=== PATIENT | female | born 1940 | race Caucasian/White ===

== ENCOUNTER → 2019-08-22 | Outpatient (CLI) | payer OTHER ==
[~2019-08-22] MED LIST: ATOR10 PO; ATOR20 PO; Chondroitin Su250 MG PO; FERR325; GLUC500 PO; LANS15EC PO; LEVSOD50 PO; LISI5 PO; METF850 PO; Motrin600 MG PO; NAPR220; Norco 5-325 Ta1 EACH PO; UBID100 PO
[2019-08-23 14:32] LABS: Stool Occult Bld Immuno 1 Negative (NEGATIVE)
== END | disposition home or self-care (01) ==
LOC: OLS 17:40 → LAB SHORT 17:40 → LAB FUT 08-19 08:40
PROVIDERS: Physician Assistant
DX: D64.9 Anemia, unspecified (principal)
CPT/HCPCS: 82274

== ENCOUNTER → 2019-10-01 | Outpatient (CLI) | payer OTHER ==
[2019-10-01 17:29] LABS: Creatinine, Urine Random 81.2 mg/dL (27.00-270.00); Protein, Urine Random 16.1 mg/dL (0.0-11.9)
== END | disposition home or self-care (01) ==
LOC: LAB 15:30 → LAB SHORT 15:30
PROVIDERS: Internal Medicine
DX: N18.3 Chronic kidney disease, stage 3 (moderate) (principal)
CPT/HCPCS: 82570; 84156

== ENCOUNTER 2020-10-13 15:04 | Inpatient (IN) | payer OTHER, MEDICARE ==
[~2020-10-13] VITALS: Ht 165.1 cm; Wt 74.8 kg
[~2020-10-13 15:04] MED LIST changes: -ATOR20 PO; +ATOR80 PO; +Glucophage 850850 MG PO; +LEVOTHYROXINE25 MC1 PO; -LEVSOD50 PO; -METF850 PO
[2020-10-13 15:42] LABS: BASOPHILS ABSOLUTE AUTO 0.05 K/mm3 (0.00-0.23); BASOPHILS PERCENT AUTO 1 % (0-2); EOSINOPHILS ABSOLUTE AUTO 0.34 K/mm3 (0.00-0.68); EOSINOPHILS PERCENT AUTO 4 % (0-6); Hematocrit 34.3 % (33.0-51.0); Hemoglobin 11.3 g/dL (11.5-16.0); IMMATURE GRAN ABSOLUTE AUTO 0.02 K/mm3 (0.00-0.10); IMMATURE GRAN PERCENT AUTO 0 % (0-1); LYMPHOCYTES ABSOLUTE AUTO 1.79 K/mm3 (0.84-5.20); LYMPHOCYTES PERCENT AUTO 23 % (21-46); MONOCYTES ABSOLUTE AUTO 0.49 K/mm3 (0.16-1.47); MONOCYTES PERCENT AUTO 6 % (4-13); Mean Corpuscular HGB 31.1 pg (26.0-34.0); Mean Corpuscular HGB Conc 32.9 g/dL (31.5-36.5); Mean Corpuscular Volume 95 fL (80-100); NEUTROPHILS ABSOLUTE AUTO 4.97 K/mm3 (1.96-9.15); NEUTROPHILS PERCENT AUTO 65 % (41-73); Platelet Count 301 K/mm3 (150-400); RDW Coefficient Variation 12.5 % (11.7-14.2); Red Blood Cell Count 3.63 M/mm3 (3.80-5.20); White Blood Cell Count 7.66 K/mm3 (4.00-11.30)
[2020-10-13 15:55] LABS: Albumin, Blood 4.3 g/dL (3.4-5.0); Albumin/Globulin Ratio 1.3 (0.8-1.8); Bilirubin, Total 0.2 mg/dL (0.1-1.0); Bun/Creatinine Ratio 18.8 (12.0-20.0); Calcium, Blood 9.2 mg/dL (8.5-10.1); Creatinine, Blood 1.33 mg/dL (0.40-1.00); Globulin, Blood 3.2 g/dL (2.2-4.0); Potassium, Blood 4.3 mmol/L (3.5-5.5); Total Protein, Blood 7.5 g/dL (6.4-8.2)
[2020-10-13] MEDS ORDERED: MULTI-VITAMIN1 EAC2 PO (16:47)
[2020-10-13] MEDS ORDERED: ESOM20 PO ×2 (16:47→19:11)
[2020-10-13] MEDS ORDERED: CALCIUM 600 +1 EAC7 PO (16:48)
[2020-10-13 22:49] LABS: Source, Urine Clean Catch
[2020-10-13 22:52] LABS: Bilirubin, Urine Neg (Neg); Blood, Urine 1+ (Neg); Glucose Qualitative, Urine Neg (Neg); Ketones, Urine 1+ (Neg); Leukocyte Esterase, Urine Neg (Neg); Nitrite, Urine Neg (Neg); Protein, Urine 3+ (Neg); Specific Gravity, Urine 1.005 (1.003-1.022); Urobilinogen, Urine NORM (Normal)
[2020-10-13 22:59] LABS: Appearance, Urine Clear (Clear); Color, Urine Yellow (P-Yellow)
[2020-10-13 23:00] LABS: Bacteria Not Seen /hpf; Red Blood Cells, Urine Rare /hpf (0-2); Squamous Epithelial Cells Rare /hpf (Few); White Blood Cells, Urine Not Seen /hpf (0-5)
[2020-10-14 04:07] LABS: BASOPHILS ABSOLUTE AUTO 0.02 K/mm3 (0.00-0.23); BASOPHILS PERCENT AUTO 0 % (0-2); EOSINOPHILS PERCENT AUTO 0 % (0-6); Hematocrit 31.3 % (33.0-51.0); Hemoglobin 10.6 g/dL (11.5-16.0); IMMATURE GRAN ABSOLUTE AUTO 0.05 K/mm3 (0.00-0.10); IMMATURE GRAN PERCENT AUTO 0 % (0-1); LYMPHOCYTES ABSOLUTE AUTO 0.74 K/mm3 (0.84-5.20); LYMPHOCYTES PERCENT AUTO 7 % (21-46); MONOCYTES ABSOLUTE AUTO 0.26 K/mm3 (0.16-1.47); MONOCYTES PERCENT AUTO 2 % (4-13); Mean Corpuscular HGB 30.7 pg (26.0-34.0); Mean Corpuscular HGB Conc 33.9 g/dL (31.5-36.5); Mean Corpuscular Volume 91 fL (80-100); Mean Platelet Volume 10.3 fL (9.1-12.4); NEUTROPHILS ABSOLUTE AUTO 10.25 K/mm3 (1.96-9.15); NEUTROPHILS PERCENT AUTO 91 % (41-73); Platelet Count 316 K/mm3 (150-400); RDW Coefficient Variation 12.3 % (11.7-14.2); RDW Standard Deviation 40.9 fL (35.1-46.3); Red Blood Cell Count 3.45 M/mm3 (3.80-5.20); White Blood Cell Count 11.32 K/mm3 (4.00-11.30)
[2020-10-14 04:28] LABS: Albumin, Blood 4.1 g/dL (3.4-5.0); Albumin/Globulin Ratio 1.5 (0.8-1.8); Bilirubin, Total 0.5 mg/dL (0.1-1.0); Calcium, Blood 9.1 mg/dL (8.5-10.1); Creatinine, Blood 1.28 mg/dL (0.40-1.00); Globulin, Blood 2.8 g/dL (2.2-4.0); Potassium, Blood 4.4 mmol/L (3.5-5.5); Total Protein, Blood 6.9 g/dL (6.4-8.2)
--- NOTE | 2020-10-14 04:34 | NUR ---
SHIFT SUMMARY PT ARRIVED TO THE UNIT AROUND 2204. PT WAS LETHARGIC AND DIFFICULT TO AROUSE, WOULD RESPOND TO VERBAL STIMULI BUT NEEDED PAIN TO FULLY OPEN EYES FOLLOW DIRECTIONS. ONCE PT WAS ALERT AND ANSWERING QUESTIONS SHE NEEDED CONSTANT STIMULATION TO KEEP EYES OPEN AND ANSWERING QUESTIONS. PT WAS ORIENTED TO SELF, PLACE, AND YEAR. VERY SOFT SPOKEN AND SLOW TO RESPOND. BP HYPERTENSIVE 166/84, HR 87 BPM. O2 SATS >90% ON ROOM AIR. AROUND 0045 PT HAD AN EPISODE OF VOMITING, ABOUT 250ML OF DARK GREEN FLUID OUT. PT STATED FEELING A LITTLE BETTER AFTER VOMITING AND FELL BACK ASLEEP. NEURO STATUS REMAINED UNCHANGED T/O SHIFT WITH L SIDED WEAKNESS, NO FACIAL DROOP. PT L ARM AND LEG WOULD MOVE IN JERKING MOTION OTHERWISE FLACCID. VITALS STABLE T/O THE SHIFT WITH BP HYPERTENSIVE 160'S DOWN TO 150'S SYSTOLIC. HR 80-100'S. O2 SATS >90% ON ROOM AIR. PT CURRENTLY SLEEPING.
--- NOTE | 2020-10-14 08:25 | NUR ---
Pt is lethargic. Does open eyes to verbal direction, but does not make any vocalizations and quickly closes them again. PERRL, left sided facial droop noted. Spontaneous movements of all extremities except for the left arm, which appears flaccid, and unresponsive to painful stimuli. Cooperative with oral care, IV start and attends change for urinary incontinence. Sinus tachycardia noted on telemetry monitoring; blood pressure is stable.
--- NOTE | 2020-10-14 11:39 | NUR ---
pt down to imaging for MRI.
--- NOTE | 2020-10-14 13:57 | NUR ---
Call to notify Dr. Bryson that pt is too sleepy to try to swallow, and cannot yet be evaluated for swallow study by speech pathologist due to drowsiness. Notified him that plavix and baby aspirin were held today on account of this. states that is fine, pt will be evaluated tomorrow.
--- NOTE | 2020-10-14 15:32 | NUR ---
applied 1 l/min O2 for spo2 88%. improved to 90%.
--- NOTE | 2020-10-14 16:10 | NUR ---
The pt has started to respond more and more verbally. She usually keeps her eyes closed, but has responded to questions. She told me that she didn't think she had taken her medications last night, and also asked if she was going to get her Metformin earlier. Oral care done and she commented that she feels like she hasn't had a drink of water in a long time. All this while her eyes are closed and she is in a sleepy state. She did comment also about throwing up last night, which was reported to me by nereyda truong. After oral care and repositioning at this time, she says that she is comfortable. Son Kurt called and was updated on the results of the MRI.
--- NOTE | 2020-10-14 19:21 | NUR ---
Overall, pt has been sleeping/sleepy for most of the shift, with just periods of answering questions and talking, but even then she quickly falls back to sleep and often keeps her eyes closed while talking. No acute neuro changes this shift. Left arm has minimal movement of the hand, no gross motor movement noted. Left leg does have gross movement, and she has strength in both upper and lower right etremities. Pupils equal and reactive. Continent once of urine in bedpan as she was far too weak to attempt OOB to bedside commode. Otherwise she has been incontinent while asleep. Sinus tachycardia noted by telemetry. Still wearing 1 l/min of Oxygen to keep spo2 at least 90%.
[2020-10-15 04:09] LABS: BASOPHILS ABSOLUTE AUTO 0.02 K/mm3 (0.00-0.23); BASOPHILS PERCENT AUTO 0 % (0-2); EOSINOPHILS PERCENT AUTO 0 % (0-6); Hematocrit 31.5 % (33.0-51.0); Hemoglobin 10.3 g/dL (11.5-16.0); IMMATURE GRAN ABSOLUTE AUTO 0.07 K/mm3 (0.00-0.10); IMMATURE GRAN PERCENT AUTO 1 % (0-1); LYMPHOCYTES ABSOLUTE AUTO 0.99 K/mm3 (0.84-5.20); LYMPHOCYTES PERCENT AUTO 7 % (21-46); MONOCYTES ABSOLUTE AUTO 0.83 K/mm3 (0.16-1.47); MONOCYTES PERCENT AUTO 6 % (4-13); Mean Corpuscular HGB 30.7 pg (26.0-34.0); Mean Corpuscular HGB Conc 32.7 g/dL (31.5-36.5); Mean Corpuscular Volume 94 fL (80-100); Mean Platelet Volume 10.5 fL (9.1-12.4); NEUTROPHILS ABSOLUTE AUTO 12.28 K/mm3 (1.96-9.15); NEUTROPHILS PERCENT AUTO 87 % (41-73); Platelet Count 291 K/mm3 (150-400); RDW Coefficient Variation 12.6 % (11.7-14.2); RDW Standard Deviation 43.8 fL (35.1-46.3); Red Blood Cell Count 3.35 M/mm3 (3.80-5.20); White Blood Cell Count 14.19 K/mm3 (4.00-11.30)
[2020-10-15 04:23] LABS: Bun/Creatinine Ratio 17.1 (12.0-20.0); Calcium, Blood 8.6 mg/dL (8.5-10.1); Creatinine, Blood 1.52 mg/dL (0.40-1.00); Potassium, Blood 3.8 mmol/L (3.5-5.5)
--- NOTE | 2020-10-15 04:40 | NUR ---
SHIFT SUMMARY PT WAS LETHARGIC T/O MOST OF THE SHIFT WAKING UP SOME THIS AM PT WAS ABLE TO COMMUNICATE THAT SHE NEEDED TO URINATE. PT WAS PUT ON BED GUERRERO AND WAS ABLE TO VOID. PT HAS L SIDE WEAKNESS AND WAS UNABLE TO MOVE L ARM OR LEG WHEN ASKED. PT MOVING L ARM GROSS NON PURPOSEFUL. PT WAS UNABLE TO SMILE, MILD L FACE DROOP. PT STATED HAVING SOME NAUSEA THIS AM, ZOFRAN WAS GIVEN AND PT STATED NAUSEA IMPROVEING. VITALS STABLE WITH BP 123-140 SYSTOLIC. HR 100'S. O2 SATS >90% ON 1 LPM VIA NC. PT SHOWES SLIGHT IMPROVEMENT FROM PREVIOUS NOC SHIFT, MORE ALERT AND RESPONSIVE.
--- NOTE | 2020-10-15 10:52 | NUR ---
PT ALERT TO SELF, BIRTHDATE, [facility]. ABLE TO VERBALIZE THE NEED TO USE BEDPAN. ANSWERING MOSTLY ONLY YES AND NO QUESTIONS. VERY SLEEPY/LETHARGIC. SLIGHT LEFT FACIAL DROOP. LEFT SIDED LEG AND ARM SPONTANEOUS MOVEMENT BUT UNABLE TO FOLLOW COMMANDS ON LEFT SIDE. ON 1 L 02 SATING AT 92-94%. TELE SHOWING SINUS RHYTHM. DENIES ANY PAIN WHEN ASKED. Q2 TURNING. PUPILS EQUAL AND RESPONSIVE TO LIGHT. ORAL CARE PREFORMED. VITALS STABLE THIS AM. WILL CONTINUE TO MONITOR.
[2020-10-15 14:29] LABS: Source, Urine Clean Catch
[2020-10-15 14:34] LABS: Appearance, Urine Hazy (Clear); Bilirubin, Urine Neg (Neg); Blood, Urine 3+ (Neg); Color, Urine Yellow (P-Yellow); Glucose Qualitative, Urine Neg (Neg); Ketones, Urine Neg (Neg); Leukocyte Esterase, Urine 1+ (Neg); Nitrite, Urine Neg (Neg); Protein, Urine 4+ (Neg); Specific Gravity, Urine 1.025 (1.003-1.022); Urobilinogen, Urine NORM (Normal)
--- NOTE | 2020-10-15 14:36 | NUR ---
PT AND OT IN TO SEE PATIENT THIS AFTERNOON. PT ALERT AND EYES OPEN WITH CONVERSATION. SON IN TO VISIT. PT STATES SHE IS "FEELING PRETTY GOOD". STRAIGHT CATH DONE FOR UA SAMPLE. VITAL SIGNS STABLE. WILL CONTINUE TO MONITOR.
[2020-10-15 15:12] LABS: Amorphous Mod (0-Heavy); Bacteria Many /hpf; Squamous Epithelial Cells Few /hpf (Few)
--- NOTE | 2020-10-15 16:59 | NUR ---
PT SLEEPY THROUGHOUT THE AFTERNOON. PT, SPEECH AND OT IN TO SEE PATIENT. UP 2X WITH PHYSICAL THERAPY. PT REMAINS NPO PER SPEECH THERAPY. VITAL SIGNS STABLE. Q2 TURNING. Q6 SUGARS. Q4 ORAL CARE. D5 NS @50 ML INFUSING IN RIGHT AC IV. LEFT FOREARM IV FLUSHING WELL AND SALINE LOCKED. ATTENDS IN PLACE. PT ABLE TO VERBALIZE THE NEED FOR BEDPAN. NEURO CHECKS REMAIN UNCHANGED THROUGHOUT THE SHIFT. PT MOVING LEFT LEG AND ARM SPONTANEOUSLY. NOT ABLE TO FOLLOW COMMANDS WITH LEFT ARM WELL LEFT LEG. PUPILS EQUAL AND RESPONDING TO LIGHT. NO EPISODES OF NAUSEA TODAY. TELE CONTINUES TO SHOW SR WITH HR 80'S. DENIES PAIN. WHEN ASKED HOW SHE IS FEELING PT STATES "PRETTY GOOD". WILL CONTINUE TO MONITOR AND REPORT OFF.
--- NOTE | 2020-10-15 18:17 | NUR ---
PT MORE ALERT THIS EVENING. HAVING CONVERSATIONS ABOUT HER CAT AT HOME AND DISCUSSING SPECIFIC SUCH WHAT THE CAT LIKES TO DO, WHEN SHE IS GOING TO THE [place] NEXT AND THE STORY OF HOW SHE GOT HER. IV ANTIBIOTICS INFUSING PER NEW ORDERS. WILL CONTINUE TO MONITOR AND REPORT OFF.
--- NOTE | 2020-10-15 19:30 | NUR ---
PT DENIES ANY HEADACHE, CHEST PAIN, SOB, NAUSEA, OR NUMBNESS AND TINGLING. PT RESTING IN HIGH SEMI-FOWLERS POSITION IN BED. PT FOLLOWING ALL INSTRUCTIONS. PT IS ALERT AND ORIENTED X3. PT IS ABLE TO SMILE, AND DEMONSTRATES STICKING HER TONGUE OUT. PT DEMONSTRATES LIFTING HER LEFT ARM UP IN THE AIR, AND IS ABLE TO PLANTAR FLEX HER LEFT FOOT. PT ALSO ABLE TO SQUEEZE MY HAND WITH HER LEFT HAND. DECREASED STRENGTH VERY MINIMAL TO LUE/LLE. ORAL CARE PROVIDED. MAINTENANCE IV INFUSING TO R AC IV SITE WITHOUT COMPLICATIONS. PT NSR WITH BBB. PT ON RA, AND IS NPO. PT DENIES ANY PAIN OR DISCOMFORT. CALL LIGHT WITHIN REACH. BED IN LOW POSITION.
--- NOTE | 2020-10-16 00:05 | NUR ---
PT INCONTINENT OF BM - SMEAR. PT THEN UP TO BSC WITH 2 PERSON SBA - PT URINATED 400 CC. PT DENIED URINARY PAIN/DISCOMFORT. PT WAS ABLE TO STAND AND PIVOT TO BSC, AND RETURN BACK TO BED WITH A STAND AND PIVOT. NEURO CHECKS UNCHANGED FROM BEGINNING OF THE SHIFT.
[2020-10-16 03:51] LABS: BASOPHILS ABSOLUTE AUTO 0.04 K/mm3 (0.00-0.23); BASOPHILS PERCENT AUTO 0 % (0-2); EOSINOPHILS ABSOLUTE AUTO 0.08 K/mm3 (0.00-0.68); EOSINOPHILS PERCENT AUTO 1 % (0-6); Hematocrit 28.6 % (33.0-51.0); Hemoglobin 9.3 g/dL (11.5-16.0); IMMATURE GRAN ABSOLUTE AUTO 0.05 K/mm3 (0.00-0.10); IMMATURE GRAN PERCENT AUTO 1 % (0-1); LYMPHOCYTES ABSOLUTE AUTO 2.01 K/mm3 (0.84-5.20); LYMPHOCYTES PERCENT AUTO 19 % (21-46); MONOCYTES ABSOLUTE AUTO 0.89 K/mm3 (0.16-1.47); MONOCYTES PERCENT AUTO 8 % (4-13); Mean Corpuscular HGB 31.3 pg (26.0-34.0); Mean Corpuscular HGB Conc 32.5 g/dL (31.5-36.5); Mean Corpuscular Volume 96 fL (80-100); Mean Platelet Volume 10.7 fL (9.1-12.4); NEUTROPHILS ABSOLUTE AUTO 7.76 K/mm3 (1.96-9.15); NEUTROPHILS PERCENT AUTO 72 % (41-73); Platelet Count 228 K/mm3 (150-400); RDW Coefficient Variation 12.8 % (11.7-14.2); RDW Standard Deviation 44.5 fL (35.1-46.3); Red Blood Cell Count 2.97 M/mm3 (3.80-5.20); White Blood Cell Count 10.83 K/mm3 (4.00-11.30)
[2020-10-16 04:24] LABS: Bun/Creatinine Ratio 21.6 (12.0-20.0); Calcium, Blood 8.1 mg/dL (8.5-10.1); Creatinine, Blood 1.48 mg/dL (0.40-1.00); Potassium, Blood 3.7 mmol/L (3.5-5.5); Thyroid Stimulating Hormone 0.659 uIU/mL (0.360-4.800)
--- NOTE | 2020-10-16 04:30 | NUR ---
PT REQUESTING MEDICATION FOR CONGESTION - REPORTS SHE NORMALLY TAKES ZYRTEC - CALL PLACED TO DR. MYRA Mondragon LM.
[2020-10-16 04:32] LABS: Magnesium, Blood 1.1 mg/dL (1.6-2.4)
--- NOTE | 2020-10-16 04:45 | NUR ---
UPDATED DR. RENTERIA ON MAGNESIUM CRITICAL LEVEL AND PT REQUEST FOR ZYRTEC/ALLERGY RELIEF FOR CONGESTION - DR. RENTERIA TO PLACE ORDERS.
--- NOTE | 2020-10-16 06:01 | NUR ---
SHIFT SUMMARY - NO CHANGES TO NEURO CHECKS FROM BEGINNING OF THIS SHIFT. PT HAS DENIED ANY COMPLAINTS, EXCEPT FEELING CONGESTED THIS AM. ORAL CARE PROVIDED THROUGHOUT THE NIGHT. PT UP X1 TO BSC WITH 2 PERSON SBA. CALL LIGHT WITHIN REACH. BED IN LOW POSITION. PT CONTINUES NPO. PT TO HAVE REPEAT CT SCAN THIS AM.
--- NOTE | 2020-10-16 06:21 | NUR ---
PT TO CT SCAN WITH CHASER APPRENTICE. IV SL'D FOR PROCEDURE.
--- NOTE | 2020-10-16 06:31 | NUR ---
PT RETURNED FROM CT SCAN - MAINTENANCE IV FLUIDS RESTARTED. CALL LIGHT WITHIN REACH. PT REPOSITIONED TO RIGHT SIDE.
--- NOTE | 2020-10-16 18:12 | NUR ---
PT ALERT AND ORIENTED X3. ABLE TO TELL ME WHY SHE IS HERE AND ABOUT HERSELF. UNABLE TO STATE DATE, CONTINUES TO STATE IT IS 2021. ON ROOM AIR SATING ABOVE 92%. TELE SHOWING SINUS, HR 80'S. DENIES CHEST PAIN. COMPLAINS OF "SINUS HEADACHE" FROM ALLERGIES. CLARITIN GIVEN THIS AM WITH NO RELIEF, TYLENOL GIVEN THIS EVENING WITH SOME RELIEF. VITAL SIGNS STABLE. NO ACUTE CHANGES. PT UP WITH PHYSICAL THERAPY THIS AFTERNOON, AND ABLE TO TAKE A WALK DOWN THE HALLWAY. UP WITH 1-2 PERSON, GAIT BELT AND WALKER TO [facility] AND CHAIR. NEURO CHECKS WNL. TREMORS IN HANDS, PATIENT STATES THIS IS HER BASELINE. SPEECH IN TO SEE PATIENT AND NEW ORDERS PLACED. PT ABLE TO EAT A LITTLE OF LUNCH BUT NOT INTERESTED IN DINNER STATES HER "APPETITE IS GONE". SON IN TO VISIT PT THIS AFTERNOON. CALL LIGHT IN REACH. BED REMAINED IN LOW LOCKED POSITION. WILL CONTINUE TO MONITOR AND REPORT OFF.
--- NOTE | 2020-10-16 19:15 | NUR ---
ASSUMED CARE PT IS ALERT. REPORTING PAIN IN ABDOMEN. VITALS ARE STABLE. DENIES CHEST PAIN OR SOB. WILL CONTINUE TO MONITOR.
--- NOTE | 2020-10-16 19:56 | NUR ---
ASSUMED CARE PT IS A/O. PT'S VITALS ARE STABLE. PT IS COMFORTABLE REPORTING A DECREASE IN HEADACHE. WILL CONTINUE TO MONITOR.
[2020-10-17 03:46] LABS: BASOPHILS ABSOLUTE AUTO 0.04 K/mm3 (0.00-0.23); BASOPHILS PERCENT AUTO 0 % (0-2); EOSINOPHILS ABSOLUTE AUTO 0.34 K/mm3 (0.00-0.68); EOSINOPHILS PERCENT AUTO 3 % (0-6); Hematocrit 30.4 % (33.0-51.0); Hemoglobin 9.9 g/dL (11.5-16.0); IMMATURE GRAN ABSOLUTE AUTO 0.04 K/mm3 (0.00-0.10); IMMATURE GRAN PERCENT AUTO 0 % (0-1); LYMPHOCYTES ABSOLUTE AUTO 1.64 K/mm3 (0.84-5.20); LYMPHOCYTES PERCENT AUTO 16 % (21-46); MONOCYTES PERCENT AUTO 6 % (4-13); Mean Corpuscular HGB 31.3 pg (26.0-34.0); Mean Corpuscular HGB Conc 32.6 g/dL (31.5-36.5); Mean Corpuscular Volume 96 fL (80-100); Mean Platelet Volume 10.7 fL (9.1-12.4); NEUTROPHILS ABSOLUTE AUTO 7.31 K/mm3 (1.96-9.15); NEUTROPHILS PERCENT AUTO 73 % (41-73); Platelet Count 243 K/mm3 (150-400); RDW Coefficient Variation 12.6 % (11.7-14.2); RDW Standard Deviation 44.4 fL (35.1-46.3); Red Blood Cell Count 3.16 M/mm3 (3.80-5.20); White Blood Cell Count 9.97 K/mm3 (4.00-11.30)
[2020-10-17 04:22] LABS: Bun/Creatinine Ratio 20.3 (12.0-20.0); Calcium, Blood 8.5 mg/dL (8.5-10.1); Creatinine, Blood 1.28 mg/dL (0.40-1.00); Magnesium, Blood 1.2 mg/dL (1.6-2.4)
--- NOTE | 2020-10-17 06:09 | NUR ---
SHIFT SUMMARY PT IS ALERT AND ORIENTED. VITALS ARE STABLE AND IS ON ROOM AIR. NO ACUTE CHANGES, NO CHEST PAIN, NO SOB. PT USES CALL LIGHT APPROPRIATELY AND IS A 1 ASSIST TO THE BSC WITH FWW. MORNING LABS K AND MAG WERE LOW AND MEDICATED PER EMAR.
--- NOTE | 2020-10-17 10:06 | NUR ---
PT ALERT AND ORIENTED X3. ADAMANT IT IS THE YEAR 2021. VERY PLEASANT AND SMILEY WITH CARES THIS AM. VITAL SIGNS STABLE. ON ROOM AIR SATING ABOVE 92%. TELE SHOWING SR - ST. DENIES CHEST PAIN. COMPLAINS OF "SINUS HEADACHE". MEDICATED WITH CLARITIN AND TYLENOL WITH SOME RELIEF. POTASSIUM INFUSING THIS AM. SITTING UP IN BED, ATE A GOOD BREAKFAST AND STATES SHE IS "READ TO GO HOME" ORAL CARE DONE, BED BATH GIVEN AND NOW SITTING IN CHAIR AT BEDSIDE. WILL CONTINUE TO MONITOR.
--- NOTE | 2020-10-17 18:16 | NUR ---
SHIFT SUMMARY: PT ALERT AND ORIENTED. ON ROOM AIR SATING ABOVE 92%. TELE SHOWING SINUS RHYTHM WITH HR 80-90'S. DENIES CHEST PAIN/PRESSURE. VITAL SIGNS STABLE. NO ACUTE CHANGES. PUPILS EQUAL AND REACTIVE TO LIGHT. PURPOSEFUL MOVEMENT WITH LEFT EXTREMITIES. ABLE TO TRANSFER FROM BED TO COMMODE WITH WALKER AND GAIT BELT. 1 PERSON ASSIST. EATING WELL AND CALLING APPROPRIATLY. IV FLUIDS RUNNING AT KVO. Q2 TURNING NEEDED. PT ABLE TO TURN SELF IN BED. ORAL CARE PROVIDED AFTER MEALS. 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 WILL CONTINUE TO MONITOR AND REPORT OFF.
[2020-10-18 03:59] LABS: Hematocrit 28.6 % (33.0-51.0); Hemoglobin 9.3 g/dL (11.5-16.0); Mean Corpuscular HGB 30.8 pg (26.0-34.0); Mean Corpuscular HGB Conc 32.5 g/dL (31.5-36.5); Mean Corpuscular Volume 95 fL (80-100); Mean Platelet Volume 11.3 fL (9.1-12.4); Platelet Count 231 K/mm3 (150-400); RDW Coefficient Variation 12.6 % (11.7-14.2); RDW Standard Deviation 43.8 fL (35.1-46.3); Red Blood Cell Count 3.02 M/mm3 (3.80-5.20); White Blood Cell Count 9.33 K/mm3 (4.00-11.30)
[2020-10-18 04:15] LABS: Albumin, Blood 2.9 g/dL (3.4-5.0); Anion Gap 6 mmol/L (6-16); Blood Urea Nitrogen 23 mg/dL (8-24); Bun/Creatinine Ratio 18.3 (12.0-20.0); CO2, Blood 25 mmol/L (21-32); Calcium, Blood 8.1 mg/dL (8.5-10.1); Chloride, Blood 112 mmol/L (98-108); Creatinine, Blood 1.26 mg/dL (0.40-1.00); Glomerular Filtration Rate 43 (60-); Glucose, Blood 142 mg/dL (70-99); Phosphorus, Blood 2.9 mg/dL (2.5-4.9); Potassium, Blood 3.6 mmol/L (3.5-5.5); Sodium, Blood 143 mmol/L (136-145)
[2020-10-18 04:17] LABS: Magnesium, Blood 1.1 mg/dL (1.6-2.4)
--- NOTE | 2020-10-18 05:07 | NUR ---
SHIFT SUMMARY PT IS SIGNIFICANTLY MORE ALERT AND ORIENTED THAN MY PREVIOUS SHIFT WITH THIS PT. PT WAS ORIENTED AND COOPERATIVE WITH CARE. NO WEAKNESS OR DEFICITS NOTED, EQUAL STRENGTH T/O. PT STATED HAVING A SLIGHT HEADACHE FROM ALERGIES BUT WAS OTHERWISE COMFORTABLE. VITALS WERE STABLE. PT HAS IMPROVED GREATLY AND HAD A QUIET UNEVENTFUL NIGHT.
--- NOTE | 2020-10-18 15:14 | NUR ---
PT CONTINUES ALERT & ORIENTED WITH MOMENTS OF CONFUSION, RESPIRATIONS EVEN AND UNLABORED ON ROOM AIR, HRR. PT RECEIVES NEW ROOM ASSIGNMENT IN MEDICAL DEPT. REPORT GIVEN TO MASSIMO RUSH.
--- NOTE | 2020-10-18 18:47 | NUR ---
SHIFT SUMMARY: PATIENT TRANSFER FROM U02 THIS SHIFT. PT A&O; OCC CONFUSION; OCC VISUAL HALLUCINATIONS; CALM AND COOPERATIVE WITH CARE. NO C/O PAIN SINCE ARRIVAL ON MEDICAL FLOOR. TELE IN PLACE; ST IN 100s; PATIENT ASYMPTOMATIC. ST EVAL THIS SHIFT; ASPIRATION PRECAUTIONS; DIET CHANGED TO PUREE; THIN LIQUIDS OK. 1-DAY LEXISCAN PLANNED FOR 10/19; PT NPO @ MIDNIGHT. WCTM.
--- NOTE | 2020-10-19 03:38 | NUR ---
SITE SAFETY COORDINATOR SUMMARY A/O 2-3. PLEASANT AND COOPERATIVE WITH CARE. SOME CONFUSION NOTED, PT IN ROOM TALKING TO SELF. DENIES PAIN OR SOB. NPO SINCE MIDNIGHT. PLAN FOR LEXISCAN TODAY. VSS, NO ACUTE CHANGES AT THIS TIME. BED IN LOWEST POSITION WITH CALL LIGHT IN REACH. WILL CONTINUE TO MONITOR AND REPORT TO ONCOMING RN.
[2020-10-19 04:31] LABS: BASOPHILS ABSOLUTE AUTO 0.03 K/mm3 (0.00-0.23); BASOPHILS PERCENT AUTO 0 % (0-2); EOSINOPHILS ABSOLUTE AUTO 0.33 K/mm3 (0.00-0.68); EOSINOPHILS PERCENT AUTO 4 % (0-6); Hematocrit 26.6 % (33.0-51.0); Hemoglobin 8.7 g/dL (11.5-16.0); IMMATURE GRAN ABSOLUTE AUTO 0.04 K/mm3 (0.00-0.10); IMMATURE GRAN PERCENT AUTO 1 % (0-1); LYMPHOCYTES ABSOLUTE AUTO 1.01 K/mm3 (0.84-5.20); LYMPHOCYTES PERCENT AUTO 14 % (21-46); MONOCYTES ABSOLUTE AUTO 0.62 K/mm3 (0.16-1.47); MONOCYTES PERCENT AUTO 8 % (4-13); Mean Corpuscular HGB 31.3 pg (26.0-34.0); Mean Corpuscular HGB Conc 32.7 g/dL (31.5-36.5); Mean Corpuscular Volume 96 fL (80-100); Mean Platelet Volume 10.9 fL (9.1-12.4); NEUTROPHILS ABSOLUTE AUTO 5.39 K/mm3 (1.96-9.15); NEUTROPHILS PERCENT AUTO 73 % (41-73); Platelet Count 221 K/mm3 (150-400); RDW Coefficient Variation 12.5 % (11.7-14.2); RDW Standard Deviation 43.8 fL (35.1-46.3); Red Blood Cell Count 2.78 M/mm3 (3.80-5.20); White Blood Cell Count 7.42 K/mm3 (4.00-11.30)
[2020-10-19 04:58] LABS: Bun/Creatinine Ratio 15.2 (12.0-20.0); Calcium, Blood 8.5 mg/dL (8.5-10.1); Creatinine, Blood 1.25 mg/dL (0.40-1.00); Magnesium, Blood 1.5 mg/dL (1.6-2.4); Phosphorus, Blood 3.6 mg/dL (2.5-4.9); Potassium, Blood 3.6 mmol/L (3.5-5.5)
--- NOTE | 2020-10-19 18:58 | NUR ---
shift summary: no acute changes to report tyhis shift. pt a&o; occ confusion; calm and cooperative with care. no c/o pain thsi shift. pt up with 1-assist; bed alarm on for safety. lexiscan this shift; awaiting results. report given to oncoming rn.
--- NOTE | 2020-10-20 04:02 | NUR ---
NURSE SUMMARY A/O 2-3, PLEASANT AND COOPERATIVE WITH CARE. DENIES PAIN OR SOB. 1 ASSIST WITH FWW AND GB. C/O SEVERAL LOOSE STOOLS, BOWEL CARE HELD THIS SHIFT. VSS, NO ACUTE CHANGES AT THIS TIME. BED IN LOWEST POSITION WITH CALL LIGHT IN REACH. WILL CONTINUE TO MONITOR AND REPORT TO ONCOMING RN.
[2020-10-20] MEDS ORDERED: METO25ER PO (08:48)
[2020-10-20] MEDS ORDERED: Acetaminophen325 M1 PO (08:49)
[2020-10-20] MEDS ORDERED: CLOP75 PO (08:50)
[2020-10-20] MEDS ORDERED: ASPI81CH PO (08:50)
[2020-10-20] MEDS ORDERED: BISA10S PR (08:50)
[2020-10-20] MEDS ORDERED: DOCU100 PO (08:50)
[2020-10-20] MEDS ORDERED: VISBIOME 112.51 EACH PO (08:51)
[2020-10-20] MEDS ORDERED: LORA10ER PO (08:51)
[2020-10-20] MEDS ORDERED: SENNA LAXATIVE8.6 MG PO (08:51)
[2020-10-20] MEDS ORDERED: METO25 PO (13:19)
[2020-10-20] MEDS ORDERED: ENTRESTO 24 MG1 EACH PO (14:37)
--- NOTE | 2020-10-20 16:06 | NUR ---
DISCHARGE NOTE PT IS A&O AND ABLE TO MAKE NEEDS KNOWN. PT RECEIVED SHOWER AND HAD ZPATCH WAS PLACED BEFORE BEING DISCHARGED. WENT OVER DC PACKET AND REVIEW MEDICATION WITH PATIENT. PT HAD NOT QUESTIONS. TOOK OUT IV BEFORE PT LEFT FLOOR. PT EXCITED TO BE GOING HOME. PT TAKEN DOWN TO EXIT VIA WHEELCHAIR BY OUTDOOR ADVERTISING LEASING AGENT WHERE FAMILY WAS WAITING TO PICK HER UP.
== END 2020-10-20 15:34 | disposition home health service (06) | DRG 65 ==
LOC: ER 15:04 → MEDS 21:12 → PCU 21:12 → MEDS 10-18 15:41
PROVIDERS: Family Medicine; Physician Assistant; ADMIT Internal Medicine
DX: I63.9 Cerebral infarction, unspecified (principal); G81.94 Hemiplegia, unspecified affecting left nondominant side; N39.0 Urinary tract infection, site not specified; Z66 Do not resuscitate; E78.5 Hyperlipidemia, unspecified; I12.9 Hypertensive chronic kidney disease with stage 1 through stage 4 chronic kidney disease, or unspecified chronic kidney disease; N18.30 Chronic kidney disease, stage 3 unspecified; E11.22 Type 2 diabetes mellitus with diabetic chronic kidney disease; R29.810 Facial weakness; E03.9 Hypothyroidism, unspecified; M19.90 Unspecified osteoarthritis, unspecified site; K21.9 Gastro-esophageal reflux disease without esophagitis; M85.80 Other specified disorders of bone density and structure, unspecified site; Z86.010 Personal history of colon polyps; Z90.710 Acquired absence of both cervix and uterus; Z90.49 Acquired absence of other specified parts of digestive tract; Z98.41 Cataract extraction status, right eye; Z98.42 Cataract extraction status, left eye; Z79.84 Long term (current) use of oral hypoglycemic drugs; Z79.899 Other long term (current) drug therapy; Z88.8 Allergy status to other drugs, medicaments and biological substances
CPT/HCPCS: 36415; 70450; 70496; 70498; 70551; 71046; 78452; 80048; 80053; 80069; 81001; 82947; 83735; 84100; 84145; 84443; 85025; 85027; 87086; 92526; 92610; 93005; 93010; 93017; 93246; 93306; 96374-59; 96375-59; 97110; 97116; 97162; 97165; 97530; 97535; 99291-25; A9270; A9500; C9113; J0280; J0696; J0780; J1644; J1815; J2405; J2785; J3475; J3480; J7042; P9612; Q9967

== ENCOUNTER → 2021-05-12 | Outpatient (CLI) | payer OTHER ==
[~2021-05-12] MED LIST changes: +ASPI81CH PO; +Acetaminophen325 M1 PO; +BISA10S PR; +CALCIUM 600 +1 EAC7 PO; +CLOP75 PO; +DOCU100 PO; +ENTRESTO 24 MG1 EACH PO; +ESOM20 PO; +LORA10ER PO; +METO25 PO; +METO25ER PO; +MULTI-VITAMIN1 EAC2 PO; +SENNA LAXATIVE8.6 MG PO; +VISBIOME 112.51 EACH PO
== END ==
LOC: LAB SHORT 08:51
PROVIDERS: Student in an Organized Health Care Education/Training Program
DX: K52.9 Noninfective gastroenteritis and colitis, unspecified (principal)
CPT/HCPCS: 82656; 83993

== ENCOUNTER 2023-07-27 19:39 | Emergency (ER) | payer OTHER ==
[~2023-07-27] VITALS: Ht 165.1 cm; Wt 63.5 kg
[2023-07-27 19:42] VITALS: BP 163/68
== END 2023-07-27 20:38 | disposition home or self-care (01) ==
LOC: ER 19:39
DX: R06.02 Shortness of breath (principal); T42.6X5A Adverse effect of other antiepileptic and sedative-hypnotic drugs, initial encounter; Z88.8 Allergy status to other drugs, medicaments and biological substances; I10 Essential (primary) hypertension; E11.9 Type 2 diabetes mellitus without complications; E78.5 Hyperlipidemia, unspecified; E03.9 Hypothyroidism, unspecified; Z79.899 Other long term (current) drug therapy; Z79.84 Long term (current) use of oral hypoglycemic drugs; Z79.82 Long term (current) use of aspirin; Z79.890 Hormone replacement therapy
CPT/HCPCS: 71046; 99283-25

== ENCOUNTER → 2023-11-13 | Outpatient (CLI) | payer OTHER ==
[2023-11-13 11:25] LABS: BASOPHILS ABSOLUTE AUTO 0.01 K/mm3 (0.00-0.23); BASOPHILS PERCENT AUTO 0 % (0-2); EOSINOPHILS ABSOLUTE AUTO 0.07 K/mm3 (0.00-0.68); EOSINOPHILS PERCENT AUTO 1 % (0-6); Hemoglobin 10.7 g/dL (11.5-16.0); IMMATURE GRAN ABSOLUTE AUTO 0.01 K/mm3 (0.00-0.10); IMMATURE GRAN PERCENT AUTO 0 % (0-1); LYMPHOCYTES ABSOLUTE AUTO 0.65 K/mm3 (0.84-5.20); LYMPHOCYTES PERCENT AUTO 11 % (21-46); MONOCYTES ABSOLUTE AUTO 0.31 K/mm3 (0.16-1.47); MONOCYTES PERCENT AUTO 5 % (4-13); Mean Corpuscular HGB 31.1 pg (26.0-34.0); Mean Corpuscular HGB Conc 33.4 g/dL (31.5-36.5); Mean Corpuscular Volume 93 fL (80-100); Mean Platelet Volume 9.8 fL (9.1-12.4); NEUTROPHILS ABSOLUTE AUTO 5.08 K/mm3 (1.96-9.15); NEUTROPHILS PERCENT AUTO 83 % (41-73); Platelet Count 224 K/mm3 (150-400); RDW Coefficient Variation 12.4 % (11.7-14.2); RDW Standard Deviation 42.5 fL (35.1-46.3); Red Blood Cell Count 3.44 M/mm3 (3.80-5.20); White Blood Cell Count 6.13 K/mm3 (4.00-11.30)
[2023-11-13 11:42] LABS: Albumin, Blood 3.7 g/dL (3.4-5.0); Albumin/Globulin Ratio 1.1 (0.8-1.8); Bilirubin, Total 0.4 mg/dL (0.1-1.0); Bun/Creatinine Ratio 16.1 (12.0-20.0); Calcium, Blood 8.7 mg/dL (8.5-10.1); Creatinine, Blood 1.68 mg/dL (0.40-1.00); Globulin, Blood 3.4 g/dL (2.2-4.0); Potassium, Blood 3.9 mmol/L (3.5-5.5); Thyroid Stimulating Hormone 2.814 uIU/mL (0.360-4.800); Total Protein, Blood 7.1 g/dL (6.4-8.2)
== END | disposition home or self-care (01) ==
LOC: LAB SHORT 11:18 → LAB 11:18
PROVIDERS: Physician Assistant
DX: R53.83 Other fatigue (principal)
CPT/HCPCS: 80053; 84443; 85025